=== PATIENT | male | born 1960 | race Caucasian/White ===

== ENCOUNTER → 2018-05-18 07:13 | Outpatient (CLI) | payer OTHER, SELFPAY ==
--- NOTE | 2018-05-18 07:17 | DI.MRI.S_ITS ---
PROCEDURE: MR LUMBAR SPINE WO CON INDICATIONS: LUMBAR SPINE PAIN TECHNIQUE: Noncontrast sagittal T1 spin echo and T2 fast echo, sagittal STIR, axial T1 and T2 fast spin echo through the lumbar spine. In cases with scoliosis, additional coronal T2 fast spin echo may be performed. [facility], 06/26/2015, 8:38. FINDINGS: Image quality: Excellent. Alignment and Curvature: No plain films are available for comparison, for numbering purposes. Thus, for the purposes of this examination, 5 lumbar type vertebral bodies will be presumed, as denoted on the montage panel. This should be confirmed and correlated with plain films, prior to any lumbar spinal intervention. There is mild grade 1 retrolisthesis of L1 on L2 and L2 on L3. Bone Marrow: Marrow is of normal overall signal. No acute vertebral body compression fractures. There is mild reactive signal within the endplates adjacent to the L1-L2, L2-L3, L3-L4, L4-L5, and L5-S1 intervertebral discs. L4-L5 laminectomy. Spinal Cord: Conus medullaris terminates at the upper L2 level. Visualized cord demonstrates normal signal and size. Paraspinous Soft Tissues: No paravertebral masses. T12-L1: Disc desiccation and mild diffuse disc bulge, with superimposed disc extrusion which extends superiorly and inferiorly within the anterior epidural space, as before. Mild facet hypertrophy bilaterally. There is mild canal stenosis. No foraminal stenosis. No change. L1-L2: Mild disc desiccation and diffuse disc bulge with superimposed left paracentral disc protrusion. Mild facet hypertrophy bilaterally. Mild canal stenosis. Mild bilateral foraminal stenosis. No change. L2-L3: Moderate disc desiccation. Mild diffuse disc bulge, with superimposed broad-based left far lateral protrusion. Mild facet and ligamentum hypertrophy bilaterally. Mild epidural lipomatosis. There is increased, moderate canal stenosis. There is increased, moderate left and mild right foraminal stenosis. L3-L4: Mild disc desiccation and mild diffuse disc bulge. Moderate facet hypertrophy bilaterally. Mild epidural lipomatosis. Mild canal stenosis is unchanged. Increased, moderate bilateral foraminal stenosis. L4-L5: Moderate disc desiccation and mild diffuse disc bulge/osteophyte. Moderate facet hypertrophy bilaterally. No significant canal stenosis. Moderate foraminal stenosis bilaterally. No change. L5-S1: Moderate disc desiccation and moderate diffuse disc bulge. Mild disc height loss. Moderate facet hypertrophy bilaterally. Mild canal stenosis. Severe foraminal stenosis bilaterally with bilateral L5 nerve root finding. No change. IMPRESSION: 1. Multilevel degenerative disc and facet disease, as well ligamentum flavum hypertrophy and epidural lipomatosis. 2. Increased, moderate canal stenosis at L2-L3. Increased left greater than right L2-L3 foraminal stenosis. 3. Increased, moderate bilateral L3-L4 foraminal stenosis. 4. No change in severe bilateral L5-S1 foraminal stenosis with associated L5 nerve root frightening. Recommend correlation with clinical symptoms to ascertain relevance of this finding. Dictated by: Roma Sargent M.D. on 05/18/2018 at 9:32 Approved by: Roma Sargent M.D. on 05/18/2018 at 9:57
== END ==
PROVIDERS: PCP Student in an Organized Health Care Education/Training Program; Visit Provider Physical Medicine & Rehabilitation
DX: M51.36 Other intervertebral disc degeneration, lumbar region (principal); M48.061 Spinal stenosis, lumbar region without neurogenic claudication; M96.1 Postlaminectomy syndrome, not elsewhere classified; M54.5 Low back pain
CPT/HCPCS: 72148

== ENCOUNTER → 2018-06-28 14:16 | Outpatient (CLI) | payer OTHER, SELFPAY ==
--- NOTE | 2018-06-28 14:17 | DI.RAD.S_ITS ---
PROCEDURE: XR LUMBAR SPINE MIN 4V INDICATIONS: Postlaminectomy syndrome, not elsewhere classified TECHNIQUE: 5 total views of the lumbar spine were acquired, including bilateral oblique views. COMPARISON: [facility], MR, MR LUMBAR SPINE WO CON, 05/18/2018, 8:02. FINDINGS: Bones: 5 nonrib-bearing, lumbar type vertebral bodies are seen. Mild disc space narrowing is seen at the L1-L2, L2-L3, and the L5-S1 levels. Facet arthropathy is seen throughout, which is most prominent inferiorly. No fractures are seen. No dislocations. No suspicious lytic or blastic lesions are seen. Mild dextroconvex scoliotic curvature is seen. Minimal retrolisthesis is seen at the L1-L2 and L2-L3 levels. Bridging endplate osteophytes are seen anteriorly at L1-L2 and on the right side at L1-L2 and L2-L3. Soft tissues: Overlying bowel gas pattern is normal. No suspicious soft tissue calcifications. Oblique images: No pars defects. IMPRESSION: Lumbar spine degenerative changes are seen, which are better demonstrated on the prior recent lumbar spine MRI. No pars defects are seen. Dictated by: Lawrence Newsome M.D. on 06/28/2018 at 14:53 Approved by: Lawrence Newsome M.D. on 06/28/2018 at 14:55
== END ==
PROVIDERS: PCP Student in an Organized Health Care Education/Training Program; Visit Provider Physical Medicine & Rehabilitation
DX: M96.1 Postlaminectomy syndrome, not elsewhere classified (principal); M48.061 Spinal stenosis, lumbar region without neurogenic claudication; M48.07 Spinal stenosis, lumbosacral region; M47.816 Spondylosis without myelopathy or radiculopathy, lumbar region
CPT/HCPCS: 72110

== ENCOUNTER 2019-02-14 08:57 | Outpatient (CLI) | payer OTHER, SELFPAY ==
[2019-02-14] VITALS (9 sets, daily range): BP systolic 100–121; BP diastolic 52–79; PULSE 71–89; RESP 16–18; TEMP 36.9; O2SAT 93–96
--- NOTE | 2019-02-14 08:58 | DI.RAD.S_ITS ---
PROCEDURE: PAIN L/S TRANSFORAMINAL INJECT INDICATIONS: SPINAL STENOSIS FINDINGS: Fluoroscopic spot filming was performed to verify placement of spinal needles at the right L5-S1 level(s), as labeled on the films. Appropriate location(s) of the needle tip(s) was confirmed by injection of iodinated contrast. IMPRESSION: Fluoroscopy for pain management. Dictated by: Charisse Rubi M.D. on 02/14/2019 at 14:14 Approved by: Charisse Rubi M.D. on 02/14/2019 at 14:15
[2019-02-14] MEDS: MIDAZOLAM 5 MG/5 ML VIAL IV (09:50)
--- NOTE | 2019-02-14 10:09 | PC.NURSE ---
pt tolerated procedure well. Able to get off the table with standby assist. Transferred pt to pre procedure room via wheelchair for continued monitoring with Bhumika BAKER.
--- NOTE | 2019-02-14 10:15 | PM.PROC.1 ---
Procedures Date/Time Date of procedure: 02/14/19 Time of procedure: 10:15 General Procedure description: PREOP DIAGNOSIS 1. FORMAINAL STENOSIS WITH LE SYMPTOMS, POST OP DIAGNOSIS 1. FORMAINAL STENOSIS WITH LE SYMPTOMS, PROCEDURES 1.FLUOROSCOPICALLY GUIDED CONTRAST CONTROLLED TRANSFORAMINAL EPIDURAL STEROID INJECTION - RIGHT L5/S1 TFESI PHYSICIAN: Luis Dickson DO INDICATIONS: Rd is referred by for treatment of Foraminal Stenosis with right LE Symptoms FINDINGS Foraminal Nerve Root Compression secondary to disc disease and facet hypertrophy DESCRIPTION OF PROCEDURE Following denial of allergy and review of potential side effects and complications, including, but not necessarily limited to, infection, allergic reaction, local tissue breakdown, stroke, temporary or permanent nerve injury, paralysis, and possible , the patient indicated that the patient understood and agreed to proceed. An informed consent document was signed by the patient, witnessed by a nurse, and placed in the patient's chart. Additionally, other treatment options including medications, modalities, and physical therapy were reviewed with the patient. After review of previous anaesthesic history and IV conscious sedation the patient was deemed safe to proceed with todays procedure with IV conscious sedation as ASA class II designation. Safety time-out was performed to confirm patient ID, procedure to be performed and site of procedure. IV sedation was accomplished with a combination of 3mg of Versed was administered by the RN after DO order, titrated to patient comfort during the course of the procedure while the patient remained responsive to all verbal commands In the prone position following sterile prep and drape of the lumbar region, the right L5/S1 posterior neuroforamen was identified fluoroscopically. The skin was anesthetized via a 25-gauge 1.5-inch needle with 1% lidocaine solution. At this point, a 25-gauge 3.5-inch spinal needle was atraumatically introduced and advanced under fluoroscopic guidance through the posterior right L5/S1 neuroforamen to approximately the anterior aspect of the canal. Depth was confirmed on lateral view. Following negative aspiration, injection of approximately 1.5 cc of Isovue 200 under live fluoroscopy in the AP view confirmed excellent flow along the nerve root, into the epidural space without vascular or intrathecal uptake observed Radiological data, including multiple fluoroscopic views of the lumbosacral spine, reveal a spinal needle at the right L5/S1 posterior neuroforamen. Subsequent views show flow of contrast material flowing superiorly and inferiorly along the nerve root confirming epidural flow. Subsequently, a test dose of 1.5 cc of 1% lidocaine solution was administered and patient was observed for two minutes for signs or symptoms of complications, including abdominal pain, shortness of breath, bilateral upper or lower extremity weakness, nausea and vomiting, prior to steroid injection. At this point, a total of 2cc or 20mg of dexamethasone was injected without incident. The procedure tolerated the procedure well without signs or symptoms of complications prior to transfer to the recovery area continued monitoring without incident. The patient was then transferred to the recovery area where they were observed for an appropriate time after the injection. The patient reported a VAS score of 7 prior to the procedure and a post-procedure VAS of 0. Total Fluoroscopy Time: 20.9 seconds Total Conscious Sedation Time: 24min POST OP INSTRUCTIONS The patient was provided a Pain Log to continue to record their response to the target-specific procedure prior to follow-up visit with their referring physician. Additionally, specific post-injection care instructions and a contact number to our office were provided if concerns arise regarding possible complications associated with the procedure are suspected. Luis Dickson DO Complications: none
--- NOTE | 2019-02-14 10:22 | PC.NURSE ---
ACCEPTED CARE OF PT IN POST PROC AREA IN STABLE CONDITION
[2019-02-14] MEDS: BUPIVACAINE 0.25% (PF) VIAL 2 ML INJ (10:23)
[2019-02-14] MEDS: IOPAMIDOL 15 ML VIAL 3 ML INJ (10:23)
[2019-02-14] MEDS: BETAMETHASONE 30 MG/5 ML MDV 6 MG INJ (10:23)
[2019-02-14] MEDS: DEXAMETHASONE 10 MG/ML VIAL 20 MG INJ (10:24)
== END 2019-02-14 10:54 | disposition home or self-care (01) ==
LOC: RAD 08:58
PROVIDERS: PCP Student in an Organized Health Care Education/Training Program; Visit Provider Physical Medicine & Rehabilitation
DX: M48.07 Spinal stenosis, lumbosacral region (principal); M48.061 Spinal stenosis, lumbar region without neurogenic claudication; M51.17 Intervertebral disc disorders with radiculopathy, lumbosacral region
CPT/HCPCS: 64483; 99152; J0702; J1100; J2250; J3010

== ENCOUNTER → 2020-06-15 20:14 | Outpatient (CLI) | payer OTHER, SELFPAY ==
--- NOTE | 2020-06-15 20:18 | DI.RAD.S_ITS ---
PROCEDURE: XR CERVICAL SPINE 4V OR 5V INDICATIONS: cervical radiculopathy TECHNIQUE: 5 views of the cervical spine acquired. COMPARISON: None. FINDINGS: Bones: No fractures or dislocations to the T1 level. Oblique images demonstrate moderate bony foraminal stenoses of the cervical spine more pronounced on the left. Findings are most severe in the mid and lower cervical spine. Moderate multilevel cervical spondylitic changes most severe from C5-6 through C7-T1. Moderate facet arthropathy. Straightening of cervical lordosis which may be due to patient positioning and/or concurrent muscle spasms. Soft tissues: No prevertebral soft tissue swelling. IMPRESSION: 1. Moderate multilevel cervical spondylosis most pronounced from C5-6 to C7-T1. 2. Multilevel left worse than right neural foraminal narrowing of the cervical spine. 3. Mild straightening of normal cervical lordosis likely related to positioning and/or concurrent muscle spasms. Dictated by: Sotero Ruiz M.D. on 06/15/2020 at 21:56 Approved by: Sotero Ruiz M.D. on 06/15/2020 at 21:58
== END ==
PROVIDERS: PCP Student in an Organized Health Care Education/Training Program; Referring Provider Physical Medicine & Rehabilitation; Visit Provider Physical Medicine & Rehabilitation
DX: M47.22 Other spondylosis with radiculopathy, cervical region (principal); M47.23 Other spondylosis with radiculopathy, cervicothoracic region; M48.02 Spinal stenosis, cervical region
CPT/HCPCS: 72050

== ENCOUNTER → 2020-07-24 07:35 | Outpatient (CLI) | payer OTHER, SELFPAY ==
--- NOTE | 2020-07-24 07:36 | DI.MRI.S_ITS ---
PROCEDURE: MR CERVICAL SPINE WO CON INDICATIONS: Cervical radiculopathy TECHNIQUE: Noncontrast sagittal T1 spin echo and T2 fast spin echo, sagittal STIR, foraminal oblique sagittal T2 fast spin echo, and axial gradient echo or T2 fast spin echo through the cervical spine. COMPARISON: [facility], CR, XR CERVICAL SPINE 4V OR 5V, 06/15/2020, 20:22. FINDINGS: Image quality: This examination is limited by involuntary motion artifact. Alignment and Curvature: There is reversal of the normal cervical lordosis, with the apex seen at the C5-C6 level. No focal AP alignment abnormality is seen. Bone Marrow: Marrow demonstrates normal overall signal. A presumed vertebral body hemangioma can be seen within the posterior C7 vertebral body. Spinal Cord: Visualized spinal cord has normal size and signal. No cerebellar tonsillar herniation. Paraspinous Soft Tissues: No paravertebral masses. Prevertebral soft tissues are normal in thickness. C2-C3: The disc height is well-preserved. Loss of disc signal is seen at this level. Moderate generalized disc osteophyte complex is seen. There is a central disc osteophyte protrusion seen. Moderate facet joint hypertrophy is seen. There is moderate to severe left-sided and moderate right-sided neural foraminal narrowing seen. At least moderate central canal narrowing is seen. There is associated mass effect upon the ventral spinal cord. C3-C4: Mild loss of disc height is seen. Loss of disc signal is seen. Moderate prominent disc osteophyte complex is seen, which is eccentric to the left. There is a central/left disc osteophyte protrusion seen. There is moderate right-sided and moderate to prominent left-sided facet hypertrophy seen. Moderate to severe bilateral neural foraminal narrowing is seen. Moderate to severe central canal narrowing is seen, with associated ventral cord flattening, as on series 4, images 20 and 21. C4-C5: The disc height is well-preserved. Loss of disc signal is seen at this level. Moderate prominent disc osteophyte complex is seen, with a central disc osteophyte protrusion. At least moderate facet hypertrophy is seen. Moderate to severe bilateral neural foraminal narrowing is seen. There is severe central canal narrowing seen, with associated ventral cord flattening, as on series 4, image 26. C5-C6: Mild loss of disc height is seen. Loss of disc signal is seen. Moderate prominent disc osteophyte complex is seen, with a central disc osteophyte protrusion. Mild to moderate facet hypertrophy is seen at this level. There is moderate to severe left-sided and at least moderate right-sided neural foraminal narrowing seen. Moderate to severe central canal narrowing is seen, with associated ventral cord flattening. C6-C7: Moderate loss of disc height is seen. Loss of disc signal is seen. Moderate prominent disc osteophyte complex is seen. Moderate facet joint hypertrophy is seen. Moderate to severe bilateral neural foraminal narrowing is seen at this level. There is moderate to severe central canal narrowing seen, with associated ventral cord flattening. C7-T1: Moderate loss of disc height is seen. Loss of disc signal is seen. Moderate prominent disc bulge is seen. Moderate facet joint hypertrophy is seen. There is moderate to severe right-sided and moderate left-sided neural foraminal narrowing seen. Mild to moderate central canal narrowing is seen. IMPRESSION: Prominent cervical spine degenerative changes are seen, which are worst at C4-C5, C5-C6 and C6-C7. Dictated by: Lawrence Newsome M.D. on 07/24/2020 at 9:04 Approved by: Lawrence Newsome M.D. on 07/24/2020 at 9:10
== END ==
PROVIDERS: PCP Student in an Organized Health Care Education/Training Program; Referring Provider Student in an Organized Health Care Education/Training Program; Visit Provider Physical Medicine & Rehabilitation
DX: M47.22 Other spondylosis with radiculopathy, cervical region (principal)
CPT/HCPCS: 72141

== ENCOUNTER 2020-09-15 08:25 | Outpatient (CLI) | payer OTHER, SELFPAY ==
[2020-09-15] VITALS (8 sets, daily range): BP systolic 112–148; BP diastolic 59–89; PULSE 59–73; RESP 12–17; TEMP 36.6; O2SAT 92–99
--- NOTE | 2020-09-15 08:30 | DI.RAD.S_ITS ---
PROCEDURE: PAIN C/T INTERLAMINAR INJECT INDICATIONS: SPINAL STENOSIS COMPARISON: None. FINDINGS: Fluoroscopic spot filming was performed to verify placement of spinal needles at the C7-T1 level(s), as labeled on the films. Appropriate location(s) of the needle tip(s) was confirmed by injection of iodinated contrast. Dictated by: Jason Lorenzana M.D. on 09/15/2020 at 12:34 Approved by: Jason Lorenzana M.D. on 09/15/2020 at 12:42
[2020-09-15] MEDS: MIDAZOLAM 5 MG/5 ML VIAL IV (11:23)
[2020-09-15] MEDS: fentaNYL 100 MCG/2 ML INJ 50 MCG IV (11:23)
[2020-09-15] MEDS: DEXAMETHASONE 10 MG/ML VIAL 30 MG INJ (11:24)
[2020-09-15] MEDS: BUPIVACAINE 0.25% (PF) VIAL 2 ML INJ (11:25)
[2020-09-15] MEDS: IOPAMIDOL 15 ML VIAL 3 ML INJ (11:25)
--- NOTE | 2020-09-15 11:33 | P.PCN_ITS ---
Date/Time/Diagnoses Date of procedure: 09/15/20 Time of procedure: 11:34 Pre-procedure diagnosis: 1. CERVICAL STENOSIS, 2. CERVICAL HNP WITH UPPER EXTREMITY RADICULAR FEATURES Procedure Notes Procedure: FLUORSCOPICALLY GUIDED CONTRAST CONTROLLED INTERLAMINAR EPIDURAL STEROID INJECTION - C7/T1 TL MARIA L Indications: Rd is referred by Dr. Meehan for treatment of Cervical Stenosis. Physician: Luis Dickson Total Fluoroscopy time (seconds): 18 Total sedation minutes: 8 Complications: none Procedure in detail & Post-procedure care: DESCRIPTION OF PROCEDURE Following review of allergy and review of potential side effects and compli cations, including, but not necessarily limited to, infection, allergic reaction, local tissue breakdown, temporary as well as permanent nerve injury, stroke, paralysis, and possible , the patient indicated that patient understood and agreed to proceed. An informed consent document was signed by the patient, witnessed by a nurse, and placed in the patient's chart. Additionally, other treatment options including modalities, medications, and physical therapy were reviewed with the patient. After review of previous anaesthesic history and IV conscious sedation the patient was deemed safe to proceed with todays procedure with IV conscious sedation as ASA class II designation. Safety time-out was performed to confirm patient ID, procedure to be performed and site of procedure. IV sedation was accomplished with a combination of 1mg of Versed and 50mcg of Fentanyl administered by the RN after DO order, titrated to patient comfort during the course of the procedure while the patient remained responsive to all verbal commands. In the prone position, following sterile prep and drape of the cervical region, the C7/T1 translaminar space was identified fluoroscopically. The skin was a nesthetized via a 25-gauge 1.5-inch needle with 1% lidocaine solution. At this point, a 25-gauge, 2.5-inch short bevel spinal needle was atraumatically introduced and advanced under fluoroscopic guidance into epidural space at the C7/T1 translaminar space. Depth was confirmed on lateral view. Radiological data, including multiple fluoroscopic views of the cervical spine, reveal a spinal needle at the C7/T1 translaminar space. Lateral views then show placement of the needle in the epidural space. Subsequent views show contrast material flowing superiorly and inferiorly in the epidural space. DSA fluoroscopy with live contrast injection, once again, confirmed no vascular or intrathecal uptake. At this point, using loss of resistance technique with saline and air, the epidural space was entered. Following negative aspiration, injection of approximately 1.5 cc of Isovue-200 with live fluoroscopy in the AP view confirmed epidural flow in the epidural space without vascular or intrathecal uptake observed. Subsequently, a test dose of 1 cc of 1% lidocaine solution was injected and patient was observed for two minutes without signs or symptoms of complications, including abdominal pain, shortness of breath, bilateral upper or lower extremity weakness, nausea and vomiting, prior to steroid injection. At this point, 3cc or 30mg of dexamethasone was then injected without incident. The patient tolerated the procedure well without signs or symptoms of complications prior to transfer to the recovery area for further monitoring The patient was then transferred to the recovery area where they were observed for an appropriate period of time after the injection. The patient reported a VAS score of 6 prior to the procedure and a post-procedure VAS of 0 POST OP INSTRUCTIONS The patient was provided a Pain Log to continue to record the patient's response to the target-specific procedure prior to the patient's follow-up visit with the referring physician. Additionally, specific post-injection care instructions and a contact number to our office were provided if concerns arise regarding possible complications associated with the procedure are suspected.
== END 2020-09-15 11:55 | disposition home or self-care (01) ==
LOC: RAD 08:26
PROVIDERS: PCP Student in an Organized Health Care Education/Training Program; Referring Provider Physical Medicine & Rehabilitation; Visit Provider Physical Medicine & Rehabilitation
DX: Z01.812 Encounter for preprocedural laboratory examination (principal); M48.02 Spinal stenosis, cervical region; M50.13 Cervical disc disorder with radiculopathy, cervicothoracic region; Z20.828 Contact with and (suspected) exposure to other viral communicable diseases
CPT/HCPCS: 62321; 87635; C9803; J1100; J2250; J3010

== ENCOUNTER → 2024-01-22 12:43 | Outpatient (CLI) | payer OTHER, SELFPAY ==
--- NOTE | 2024-01-22 12:47 | DI.RAD.S_ITS ---
PROCEDURE: XR LUMBAR SPINE MIN 4V INDICATIONS: LEG PAIN TECHNIQUE: 5 views of the lumbar spine were acquired, including bilateral oblique views. COMPARISON: [facility], CR, XR LUMBAR SPINE MIN 4V, 06/28/2018, 13:54. FINDINGS: Bones: 5 nonrib-bearing vertebrae are present. There is 6 mm retrolisthesis of L1 on L2 and 7 mm retrolisthesis of L2 on L3. Degenerative endplate changes are noted throughout lumbar spine. Bilateral facet arthrosis is also seen. No vertebral body compression fractures. No suspicious bony lesions. Soft tissues: Overlying bowel gas pattern is normal. No suspicious soft tissue calcifications. Oblique images: No pars defects. IMPRESSION: Grade 1 retrolisthesis at L1-2 and L2-3 levels unchanged from prior study. No acute compression fracture . Degenerative disc disease throughout lumbar spine. Dictated by: Efra Arevalo M.D. on 01/22/2024 at 14:04 Approved by: Efra Arevalo M.D. on 01/22/2024 at 14:07
== END ==
PROVIDERS: PCP Student in an Organized Health Care Education/Training Program; Referring Provider Physical Medicine & Rehabilitation; Visit Provider Physical Medicine & Rehabilitation
DX: M54.17 Radiculopathy, lumbosacral region (principal); M43.16 Spondylolisthesis, lumbar region; M51.36 Other intervertebral disc degeneration, lumbar region; M48.061 Spinal stenosis, lumbar region without neurogenic claudication; M21.372 Foot drop, left foot
CPT/HCPCS: 72110

== ENCOUNTER → 2024-01-30 16:08 | Outpatient (CLI) | payer OTHER, SELFPAY ==
--- NOTE | 2024-01-30 16:09 | DI.MRI.S_ITS ---
PROCEDURE: MR LUMBAR SPINE WO CON INDICATIONS: lumbar radiculopathy TECHNIQUE: Noncontrast sagittal T1 spin echo and T2 fast echo, sagittal STIR, and T2 fast spin echo through the lumbar spine. In cases with scoliosis, additional coronal T2 fast spin echo may be performed. COMPARISON: [facility], MR, MR LUMBAR SPINE WO CON, 05/18/2018, 8:02. FINDINGS: Image quality: Excellent. Alignment and Curvature: There is normal bony alignment. Bone Marrow: Degenerative chronic endplate changes Spinal Cord: Conus medullaris terminates at the L1 level. Visualized cord demonstrates normal signal and size. Paraspinous Soft Tissues: No paravertebral masses. T12-L1: Disc height is maintained. Focal central disc protrusion/extrusion with superior and inferior migration of disc fragments results in [id number] central stenosis. No foraminal stenosis. L1-L2: Disc space narrowing with left subarticular disc protrusion results in moderate effacement of the left lateral recess and mild central stenosis. Arthropathy noted without foraminal stenosis. L2-L3: Disc space narrowing with broad-based disc bulge and hypertrophic facet joints combines with dorsal epidural fat result in moderate central stenosis. Moderate right and severe left foraminal stenosis L3-L4: Disc height is maintained. Broad-based disc bulge and arthropathy results in mild central stenosis. Moderate bilateral foraminal stenosis L4-L5: Disc height loss. Broad-based disc bulge. Prior laminotomy changes. Arthropathy contributes to moderate central stenosis. Severe right and left foraminal stenosis L5-S1: Disc space narrowing and disc bulge no central stenosis. Severe bilateral foraminal stenosis IMPRESSION: Multilevel degenerative disc disease and arthropathy results in varying degrees of central and foraminal stenosis including moderate central stenosis and L4-5 with severe foraminal stenosis L2-3, L4-5 and L5-S1 Approved by: Souleymane Miranda M.D. on 01/31/2024 at 15:32
== END ==
PROVIDERS: PCP Student in an Organized Health Care Education/Training Program; Referring Provider Physical Medicine & Rehabilitation; Visit Provider Physical Medicine & Rehabilitation
DX: M51.16 Intervertebral disc disorders with radiculopathy, lumbar region (principal); M51.17 Intervertebral disc disorders with radiculopathy, lumbosacral region; M47.26 Other spondylosis with radiculopathy, lumbar region; M48.061 Spinal stenosis, lumbar region without neurogenic claudication; M48.07 Spinal stenosis, lumbosacral region
CPT/HCPCS: 72148

== ENCOUNTER → 2024-02-21 12:24 | Outpatient (CLI) | payer OTHER, SELFPAY ==
--- NOTE | 2024-02-21 12:25 | DI.RAD.S_ITS ---
PROCEDURE: XR CERVICAL SPINE 4V OR 5V INDICATIONS: NECK PAIN TECHNIQUE: 6 views of the cervical spine acquired. COMPARISON: None. FINDINGS: Bones: There is straightening and mild reversal of normal cervical lordosis. No acute fracture or dislocation. Loss of disc height, degenerative endplate changes and bilateral uncovertebral hypertrophic changes are noted throughout cervical spine more notably at C4-5 through C6-7 levels. Oblique images demonstrate right worse than left bilateral bony foraminal stenosis at C3-4 through C6-7 levels. Soft tissues: No prevertebral soft tissue swelling. IMPRESSION: Moderate degenerative disc disease throughout lumbar spine with left worse than right bilateral bony foraminal stenosis at C3-4 through C6-7 levels. No acute fracture or dislocation. Dictated by: Efra Arevalo M.D. on 02/21/2024 at 13:22 Approved by: Efra Arevalo M.D. on 02/21/2024 at 13:23
== END ==
PROVIDERS: PCP Student in an Organized Health Care Education/Training Program; Referring Provider Physical Medicine & Rehabilitation; Visit Provider Physical Medicine & Rehabilitation
DX: M50.121 Cervical disc disorder at C4-C5 level with radiculopathy (principal); M48.02 Spinal stenosis, cervical region; M54.17 Radiculopathy, lumbosacral region; M51.26 Other intervertebral disc displacement, lumbar region; M96.1 Postlaminectomy syndrome, not elsewhere classified; M48.062 Spinal stenosis, lumbar region with neurogenic claudication; M21.372 Foot drop, left foot; R20.0 Anesthesia of skin
CPT/HCPCS: 72050; 99214

== ENCOUNTER → 2024-03-14 07:11 | Outpatient (CLI) | payer OTHER, SELFPAY ==
[2024-03-14] VITALS (9 sets, daily range): BP systolic 113–166; BP diastolic 56–101; PULSE 70–83; RESP 12–23; TEMP 36.2; O2SAT 93–98
--- NOTE | 2024-03-14 08:00 | DI.RAD.S_ITS ---
PROCEDURE: PAIN L/S TRANSFORAMINAL INJECT INDICATIONS: Left L4-5 transforaminal MARIA L COMPARISON: [facility], , PAIN L/S TRANSFORAMINAL INJECT, 02/14/2019, 9:59. FINDINGS: Fluoroscopic spot filming was performed to verify placement of spinal needles at the left L4-5 level(s), as labeled on the films. Appropriate location(s) of the needle tip(s) was confirmed by injection of iodinated contrast. IMPRESSION: Intra procedural examination demonstrating appropriate positions of the needles. Dictated by: Daniel Osborne M.D. on 03/14/2024 at 9:16 Approved by: Daniel Osborne M.D. on 03/14/2024 at 9:16
[2024-03-14] MEDS: MIDAZOLAM 2 MG/2 ML VIAL IV (08:23)
[2024-03-14] MEDS: iopamidoL 15 ML VIAL 3 ML INJ (08:39)
[2024-03-14] MEDS: BETAMETHASONE 30 MG/5 ML MDV 6 MG INJ (08:39)
[2024-03-14] MEDS: BUPIVACAINE 0.25% (PF) VIAL 2 ML INJ (08:39)
[2024-03-14] MEDS: DEXAMETHASONE 10 MG/ML VIAL INJ (08:40)
--- NOTE | 2024-03-14 08:48 | P.PCN_ITS ---
Date/Time/Diagnoses Date of procedure: 03/14/24 Time of procedure: 08:48 Pre-procedure diagnosis: 1. FORAMINAL STENOSIS WITH LE SYMPTOMS Post-procedure diagnosis: same Procedure Notes Procedure: 1. FLUOROSCOPICALLY GUIDED CONTRAST CONTROLLED TRANSFORAMINAL EPIDURAL STEROID INJECTION - LEFT L4/5 Indications: Rd is referred by Dr. Meehan for treatment of Foraminal Stenosis with Left LE Symptoms Physician: Luis Dickson Total Fluoroscopy time (seconds): 17 Total sedation minutes: 21 Complications: none Procedure in detail & Post-procedure care: FINDINGS Foraminal Nerve Root Compression secondary to disc disease and facet hypertrophy DESCRIPTION OF PROCEDURE Following review of allergy and review of potential side effects and complications, including, but not necessarily limited to, infection, allergic reaction, local tissue breakdown, stroke, temporary or permanent nerve injury, paralysis, and possible , the patient indicated that the patient understood and agreed to proceed. An informed consent document was signed by the patient, witnessed by a nurse, and placed in the patient's chart. Additionally, other treatment options including medications, modalities, and physical therapy were reviewed with the patient. After review of previous anaesthesic history and IV conscious sedation the patient was deemed safe to proceed with today?s procedure with IV conscious sedation as ASA class II designation. Safety time-out was performed to confirm patient ID, procedure to be performed and site of procedure. IV sedation was accomplished with a combination of 2mg of Versed administered by the RN after DO order, titrated to patient comfort during the course of the procedure while the patient remained responsive to all verbal commands In the prone position following sterile prep and drape of the lumbar region, the left L4/5 posterior neuroforamen was identified fluoroscopically. The skin was anesthetized via a 25-gauge 1.5-inch needle with 1% lidocaine solution. At this point, a 25-gauge 3.5-inch spinal needle was atraumatically introduced and advanced under fluoroscopic guidance through the posterior left L4/5 neuroforamen to approximately the anterior aspect of the canal. Depth was confirmed on lateral view. Following negative aspiration, injection of approximately 1.5 cc of Isovue 200 under live fluoroscopy in the AP view confirmed excellent flow along the nerve root, into the epidural space without vascular or intrathecal uptake observed Radiological data, including multiple fluoroscopic views of the lumbosacral spine, reveal a spinal needle at the left L4/5 posterior neuroforamen. Subsequent views show flow of contrast material flowing superiorly and inferiorly along the nerve root confirming epidural flow. Subsequently, a test dose of 1.5 cc of 1% lidocaine solution was administered and patient was observed for two minutes for signs or symptoms of complications, including abdominal pain, shortness of breath, bilateral upper or lower extremity weakness, nausea and vomiting, prior to steroid injection. At this point, a total of 2cc or 10mg of dexamethasone and 6mg of betamethasone was injected without incident. The procedure tolerated the procedure well without signs or symptoms of complications prior to transfer to the recovery area continued monitoring without incident. The patient was then transferred to the recovery area where they were observed for an appropriate time after the injection. The patient reported a VAS score of 7 prior to the procedure and a post- procedure VAS of 0. POST OP INSTRUCTIONS The patient was provided a Pain Log to continue to record their response to the target-specific procedure prior to follow-up visit with their referring physician. Additionally, specific post-injection care instructions and a contact number to our office were provided if concerns arise regarding possible complications associated with the procedure are suspected.
== END ==
LOC: RAD 07:12
PROVIDERS: PCP Student in an Organized Health Care Education/Training Program; Referring Provider Physical Medicine & Rehabilitation; Visit Provider Physical Medicine & Rehabilitation
DX: M48.061 Spinal stenosis, lumbar region without neurogenic claudication (principal); M51.16 Intervertebral disc disorders with radiculopathy, lumbar region; M47.26 Other spondylosis with radiculopathy, lumbar region
CPT/HCPCS: 64483; 99152; J0702; J1100; J2250; J3490

== ENCOUNTER 2024-06-04 15:25 | Outpatient (CLI) | payer OTHER, SELFPAY ==
[2024-06-04] VITALS (9 sets, daily range): BP systolic 99–122; BP diastolic 57–78; PULSE 68–87; RESP 12–18; TEMP 36.2; O2SAT 92–96
--- NOTE | 2024-06-04 15:45 | PC.NURSE ---
Patient brought back via w/c, state he usually uses a walker to ambulate but does not ambulate far. Per he is very drowsy/loopy from the diazepam, he took 20mg at 1500. Pre procedure questions and d/c instructions reviewed with and patient.
[2024-06-04] MEDS: MIDAZOLAM 2 MG/2 ML VIAL 1 MG IV (15:59)
--- NOTE | 2024-06-04 16:00 | DI.RAD.S_ITS ---
PROCEDURE: PAIN L/S TRANSFORAMINAL INJECT INDICATIONS: left L4/5 TFESI COMPARISON: [facility], , PAIN L/S TRANSFORAMINAL INJECT, 03/14/2024, 8:33. FINDINGS: Fluoroscopic spot filming was performed to verify placement of spinal needles at the L4-5 level(s), as labeled on the films. Appropriate location(s) of the needle tip(s) was confirmed by injection of iodinated contrast. IMPRESSION: Fluoroscopic guidance utilized for an epidural injection at L4-5. Dictated by: Omar Salazar M.D. on 06/04/2024 at 16:48 Approved by: Omar Salazar M.D. on 06/04/2024 at 16:48
[2024-06-04] MEDS: iopamidoL 15 ML VIAL 3 ML INJ (16:03)
[2024-06-04] MEDS: DEXAMETHASONE 10 MG/ML VIAL INJ (16:03)
[2024-06-04] MEDS: BUPIVACAINE 0.25% (PF) VIAL 2 ML INJ (16:04)
[2024-06-04] MEDS: BETAMETHASONE 30 MG/5 ML MDV 6 MG INJ (16:04)
--- NOTE | 2024-06-04 16:29 | P.PCN_ITS ---
Date/Time/Diagnoses Date of procedure: 06/04/24 Time of procedure: 16:29 Pre-procedure diagnosis: 1. FORAMINAL STENOSIS WITH LE SYMPTOMS Post-procedure diagnosis: same Procedure Notes Procedure: 1. FLUOROSCOPICALLY GUIDED CONTRAST CONTROLLED TRANSFORAMINAL EPIDURAL STEROID INJECTION - LEFT L4/5 Indications: Rd is referred by Dr. Meehan for treatment of Foraminal Stenosis with Left LE Symptoms Physician: Luis Dickson Total Fluoroscopy time (seconds): 27 Total sedation minutes: 16 Complications: none Procedure in detail & Post-procedure care: FINDINGS Foraminal Nerve Root Compression secondary to disc disease and facet hypertrophy DESCRIPTION OF PROCEDURE Following review of allergy and review of potential side effects and complications, including, but not necessarily limited to, infection, allergic reaction, local tissue breakdown, stroke, temporary or permanent nerve injury, paralysis, and possible , the patient indicated that the patient understood and agreed to proceed. An informed consent document was signed by the patient, witnessed by a nurse, and placed in the patient's chart. Additionally, other treatment options including medications, modalities, and physical therapy were reviewed with the patient. After review of previous anaesthesic history and IV conscious sedation the patient was deemed safe to proceed with today?s procedure with IV conscious sedation as ASA class II designation. Safety time-out was performed to confirm patient ID, procedure to be performed and site of procedure. IV sedation was accomplished with a combination of 1mg of Versed administered by the RN after DO order, titrated to patient comfort during the course of the procedure while the patient remained responsive to all verbal commands In the prone position following sterile prep and drape of the lumbar region, the left L4/5 posterior neuroforamen was identified fluoroscopically. The skin was anesthetized via a 25-gauge 1.5-inch needle with 1% lidocaine solution. At this point, a 25-gauge 3.5-inch spinal needle was atraumatically introduced and advanced under fluoroscopic guidance through the posterior left L4/5 neuroforamen to approximately the anterior aspect of the canal. Depth was confirmed on lateral view. Following negative aspiration, injection of approximately 1.5 cc of Isovue 200 under live fluoroscopy in the AP view confirmed excellent flow along the nerve root, into the epidural space without vascular or intrathecal uptake observed Radiological data, including multiple fluoroscopic views of the lumbosacral spine, reveal a spinal needle at the left L4/5 posterior neuroforamen. Subsequent views show flow of contrast material flowing superiorly and inferiorly along the nerve root confirming epidural flow. Subsequently, a test dose of 1.5 cc of 1% lidocaine solution was administered and patient was observed for two minutes for signs or symptoms of complications, including abdominal pain, shortness of breath, bilateral upper or lower extremity weakness, nausea and vomiting, prior to steroid injection. At this point, a total of 2cc or 10mg of dexamethasone and 6mg of betamethasone was injected without incident. The procedure tolerated the procedure well without signs or symptoms of complications prior to transfer to the recovery area continued monitoring without incident. The patient was then transferred to the recovery area where they were observed for an appropriate time after the injection. The patient reported a VAS score of 7 prior to the procedure and a post- procedure VAS of 0. POST OP INSTRUCTIONS The patient was provided a Pain Log to continue to record their response to the target-specific procedure prior to follow-up visit with their referring physician. Additionally, specific post-injection care instructions and a contact number to our office were provided if concerns arise regarding possible complications associated with the procedure are suspected.
== END 2024-06-04 16:48 | disposition home or self-care (01) ==
PROVIDERS: PCP Student in an Organized Health Care Education/Training Program; Referring Provider Physical Medicine & Rehabilitation; Visit Provider Physical Medicine & Rehabilitation
DX: M51.16 Intervertebral disc disorders with radiculopathy, lumbar region (principal); M21.372 Foot drop, left foot
CPT/HCPCS: 64483; 99152; J0702; J1100; J2250; J3490